=== PATIENT | female | born 1970 | race Caucasian/White ===

== ENCOUNTER 2023-10-19 13:12 | Emergency (ER) | payer BC, SELFPAY ==
--- NOTE | ~2023-10-19 | XR_ITS ---
EXAMINATION: XR lumbar spine 2-3V DATE: 10/19/2023 13:49 INDICATION: Back pain. TECHNIQUE: 3 views of lumbar spine were obtained. COMPARISON: None. FINDINGS: There is 7 degrees dextrocurvature of lumbar spine. Vertebral body heights are normal. Ther e is mildly decreased disc height at L4-L5 and severely decreased disc height at L5-S1. There is mult ilevel mild to moderate facet joint osteoarthritis. There is a left-sided tubal ligation clip in expe cted position. There is a displaced right-sided tube ligation clip. IMPRESSION: 1. Severe lower lumbar spondylosis. Reviewed, dictated and finalized at location A. TREADER
[2023-10-19 13:28] VITALS: BP 132/82; PULSE 84; RESP 16; TEMP 37.4; O2SAT 100
--- NOTE | 2023-10-19 13:36 | ED.BACK ---
HPI - Back Pain/Injury General Chief Complaint: Back Pain/Injury Stated Complaint: back pain Time Seen by Provider: 10/19/23 13:36 Source: patient Mode of arrival: ambulatory Limitations: no limitations History of Present Illness HPI Narrative: 53 yo F presents with c/o pain to low back for 2 days. Denies injury or any new activities. Reports that she [place] walking around the [place] with her daughter and noticed back was aching and felt tight. Next day pain worse with muscle spasms. Taking ibuprofen with little relief of pain. Now pain radiating into mid back. Ambulatory with steady gait. No loss of bowel or bladder. No urinary symptoms. all systems reviewed and negative except as noted above. Related Data Home Medications Medication Instructions Recorded Confirmed venlafaxine 37.5 mg 37.5 mg PO DAILY 10/19/23 10/19/23 capsule,extended release 24 hr Allergies Allergy/AdvReac Type Severity Reaction Status Date / Time No Known Allergies Allergy Verified 10/19/23 13:35 Review of Systems Review of Systems: CONSTITUTIONAL: Denies fever, chills, or sweats. EYES: Denies visual changes, redness, or discharge. ENT: Denies rhinorrhea, congestion, sore throat, or otalgia. CARDIOVASCULAR: Denies chest pain, palpitations, or edema. RESPIRATORY: Denies cough or dyspnea. GASTROINTESTINAL: Denies abdominal pain, nausea, vomiting, or diarrhea. GENITOURINARY: Denies dysuria or hematuria. SKIN: Denies rash or itching. MUSCULOSKELETAL: reports low and mid back pain. Denies joint pain, or myalgia. NEUROLOGIC: Denies headache, numbness, or weakness. PSYCHIATRIC: Denies anxiety or depression. All other systems reviewed are negative, except as documented in HPI. PMFSH Comments At time of signature, agree with nursing past medical, surgical, social and family history. There is no relevant family history pertinent to the presenting complaint. Exam Narrative: GENERAL: This is a well-nourished, well-developed patient, in no apparent distress. HEAD: normocephalic, atraumatic. EYES: PERRL. Sclera clear/white. Vision is grossly intact. EARS: External ears normal NOSE: External nose normal NECK: Neck supple, non-tender without lymphadenopathy, masses or thyromegaly. CARDIOVASCULAR: Regular rate and rhythm without murmurs, gallops, or rubs. RESPIRATORY: Clear to auscultation. Breath sounds equal bilaterally. No wheezes, rales, or rhonchi. SKIN: warm, Dry, intact with no suspicious lesions or rash, good texture and turgor. NEURO: awake, alert, and oriented to person, place and time. There were no obvious focal neurologic abnormalities. EXTREMITIES: No joint tenderness, effusion, or edema noted. No calf tenderness. Negative Homans sign bilaterally. BACK: Nontender without deformity. no midline tenderness. low back muscle spasm. lower extremity strength 5/5 bilateral. neg straight leg raise. Course Course Level of Care: Express Care Visit Vital Signs Vital signs: Vital Signs Temperature 37.4 C 10/19/23 13:28 Pulse Rate 84 10/19/23 13:28 Respiratory Rate 16 10/19/23 13:28 Blood Pressure 132/82 10/19/23 13:28 Pulse Oximetry 100 10/19/23 13:28 Temperature 37.4 C 10/19/23 13:28 Pulse Rate 84 10/19/23 13:28 Respiratory Rate 16 10/19/23 13:28 Blood Pressure 132/82 10/19/23 13:28 Pulse Oximetry 100 10/19/23 13:28 reviewed MDM - Back Pain/Injury MDM Narrative Medical decision making narrative: Patient is aware of diagnosis, understands and agrees to treatment plan. Anticipatory guidance given. Patient agrees to follow-up as directed and is aware of reasons to seek care at the emergency department. Portions of this record may have been created with voice recognition software no neuro deficits. discussed x-ray results with pt. will given prednisone for arthritis. recommend follow up with PCP. Differential Diagnosis Differential diagnosis: Likely strain of lumbar region Discha
[2023-10-19] MEDS: KETOROLAC (*BKC) 60 MG/2 ML VIAL IM (14:09)
== END 2023-10-19 14:43 | disposition home or self-care (01) ==
PROVIDERS: Emergency Provider Nurse Practitioner Family; PCP Physician Assistant
DX: M47.816 Spondylosis without myelopathy or radiculopathy, lumbar region (principal)
CPT/HCPCS: 72100; 96372; 99213; G0463; J1885